=== PATIENT | female | born 1980 | race Caucasian/White ===

== ENCOUNTER 2017-03-19 20:12 | Emergency (ER) | payer BC ==
[2017-03-19 20:42] VITALS: BP 118/63
--- NOTE | 2017-03-19 21:12 | UC ---
Skin Complaint HPI - HPI Summary HPI Summary: pt c/o of 2 cm in diameter bruised circular area with erythematous area around bruise on medial left lower ankle. pt c/o of burning and tenderness to area Pt denies injury. pt has history of ankle fracture varicose vein stripping to left lower extrmity. pt reports traveling over the weekend, sitting and ambulating for long periods of time over last 2 days. - History of Current Complaint Chief Complaint: UCSkin Time Seen by Provider: 03/19/17 20:42 Stated Complaint: SKIN COMPLAINT,LEFT LEG Hx Obtained From: Patient Hx Last Menstrual Period: 03/06/17 ?: No Onset/Duration: Sudden Onset, Lasting Hours Skin Exposure Onset/Duration: Hours Ago Timing: Constant Onset Severity: Moderate Location: Discrete - left medial lower /shinankle Character: Swelling, Redness Aggravating: Touch Alleviating: Other - elevation Associated Signs & Symptoms: Positive: Tenderness - Allergy/Home Medications Allergies/Adverse Reactions: Allergies Allergy/AdvReac Type Severity Reaction Status Date / Time No Known Allergies Allergy Verified 03/19/17 20:31 Home Medications: Home Medications Ibuprofen TAB* [Motrin TAB* 600 MG] 600 mg PO Q6H PRN 03/19/17 [History Confirmed 03/19/17] Review of Systems Constitutional: Negative Skin: Bruising - left lower Eyes: Negative ENT: Negative Respiratory: Negative Cardiovascular: Negative Gastrointestinal: Negative Genitourinary: Negative Motor: Negative Neurovascular: Negative Musculoskeletal: Edema - left lower extremity Neurological: Negative Psychological: Negative All Other Systems Reviewed And Are Negative: Yes PMH/Surg Hx/FS Hx/Imm Hx Previously Healthy: Yes - varicose veins, left ankle fracture - Surgical History Surgical History: Yes Surgery Procedure, Year, and Place: c section x 2, varicose veins surgery both legs - Family History Known Family History: Positive: Blood Disorder - denies - Social History Occupation: Employed Full-time Lives: With Family Alcohol Use: None Substance Use Type: None Smoking Status (MU): Never Smoked Tobacco Physical Exam Triage Information Reviewed: Yes Appearance: Well-Appearing Vital Signs: Initial Vital Signs Temp 99.7 F 03/19/17 20:32 Pulse 77 03/19/17 20:32 Resp 16 03/19/17 20:32 BP 118/63 03/19/17 20:32 Pulse Ox 100 03/19/17 20:32 Eye Exam: Normal Neck exam: Normal Respiratory Exam: Normal Cardiovascular Exam: Normal Musculoskeletal Exam: Other Musculoskeletal: Positive: Edema @ - left lower extremity,non pitting edema, 2 cm diameter bruise with erythematous [place] around bruise, tenderness with palpation, Neurological Exam: Normal Psychological Exam: Normal Skin Exam: Other - bruise, Course/Dx - Differential Diagnoses - Skin Complaint Differential Diagnoses: Contact Dermatitis, Tinea, Other - shingles - Diagnoses Provider Diagnoses: bruise,. abrasion. chronic lower left leg edema Discharge - Discharge Plan Condition: Stable Disposition: HOME Patient Education Materials: Contusion in Adults (ED), Leg Edema (ED), Abrasion (ED) Referrals: Kay Bowers MD [Primary Care Provider] - Geraldo Tan MD [Medical Doctor] -
== END 2017-03-19 21:19 | disposition home or self-care (01) ==
LOC: UCCORT 20:12
DX: S80.12XA Contusion of left lower leg, initial encounter (principal); S80.812A Abrasion, left lower leg, initial encounter; X58.XXXA Exposure to other specified factors, initial encounter; Y93.9 Activity, unspecified; Y92.9 Unspecified place or not applicable; R60.0 Localized edema; I83.90 Asymptomatic varicose veins of unspecified lower extremity
CPT/HCPCS: 99211; G0463

== ENCOUNTER 2017-05-02 14:49 | Emergency (ER) | payer BC ==
[2017-05-02 15:10] VITALS: BP 142/74
--- NOTE | 2017-05-02 15:27 | UC ---
Complaint Female HPI - HPI Summary HPI Summary: Patient has had dysuria, increase frequency of urination for the past 2 days. - History Of Current Complaint Chief Complaint: UCGU Stated Complaint: URINARY COMPLAINT Time Seen by Provider: 05/02/17 14:53 Hx Obtained From: Patient Hx Last Menstrual Period: now ?: No Onset/Duration: Sudden Onset, Lasting Days Timing: Constant Severity Initially: Mild Severity Currently: Moderate Character: Burning, Cramping Aggravating Factor(s): Urination Alleviating Factor(s): Position - Allergies/Home Medications Allergies/Adverse Reactions: Allergies Allergy/AdvReac Type Severity Reaction Status Date / Time pollen Allergy Sneezing Uncoded 05/02/17 15:11 Home Medications: Home Medications Avelzjs-Bimtxweymwjvp-Cvqhesuu [Excedrin Migraine] 1 tab PO ONCE PRN 05/02/17 [ History Confirmed 05/02/17] PMH/Surg Hx/FS Hx/Imm Hx Previously Healthy: Yes - Surgical History Surgical History: Yes Surgery Procedure, Year, and Place: c section x 2, varicose veins surgery both legs - Family History Known Family History: Positive: Blood Disorder - denies - Social History Alcohol Use: None Substance Use Type: None Smoking Status (MU): Never Smoked Tobacco Review of Systems Constitutional: Negative Skin: Negative Eyes: Negative ENT: Negative Respiratory: Negative Cardiovascular: Negative Gastrointestinal: Negative Genitourinary: Dysuria, Frequency, Urgency Motor: Negative Neurovascular: Negative Musculoskeletal: Negative Neurological: Negative Psychological: Negative All Other Systems Reviewed And Are Negative: Yes Physical Exam Triage Information Reviewed: Yes Appearance: Well-Nourished, Ill-Appearing, Pain Distress Vital Signs: Initial Vital Signs Temp 99.2 F 05/02/17 14:56 Pulse 83 05/02/17 14:56 Resp 12 05/02/17 14:56 BP 142/74 05/02/17 14:56 Vital Signs Reviewed: Yes Eye Exam: Normal Eyes: Positive: Conjunctiva Clear ENT: Positive: Normal ENT inspection, Hearing grossly normal, Pharynx normal, TMs normal Dental Exam: Normal Neck exam: Normal Neck: Positive: Supple, Nontender, No Lymphadenopathy Respiratory Exam: Normal Respiratory: Positive: Chest non-tender, Lungs clear, Normal breath sounds Cardiovascular Exam: Normal Cardiovascular: Positive: RRR, No Murmur, Pulses Normal Abdominal Exam: Normal Abdomen Description: Positive: Nontender, No Organomegaly, Soft Bowel Sounds: Positive: Present Musculoskeletal Exam: Normal Musculoskeletal: Positive: Strength Intact, ROM Intact, No Edema Neurological Exam: Normal Neurological: Positive: Alert, Muscle Tone Normal Psychological Exam: Normal Skin Exam: Normal Complaint Female Dx - Course Course Of Treatment: hx obtained, exam performed ,meds reviewed, UA pos for blood, urine culture sent, treated for UTI - Differential Dx/Diagnosis Differential Diagnosis/HQI/PQRI: Sexually Transmitted Disease, Ureteral Stone, Urinary Tract Infection, Other - vaginitis Provider Diagnoses: dysuria. hematuria Discharge - Discharge Plan Condition: Stable Disposition: HOME Patient Education Materials: Dysuria (ED) Additional Instructions: 1. Take the pyridium, 2. increase your fluid intake 3. Start the antibiotics today or tomorrow as you desire, if your symtpoms disappear with the increased fluid intake, hold off on the antibiotic until the culture comes back, if symptoms increase start the antibiotic. 4. follow up as needed.
== END 2017-05-02 15:35 | disposition home or self-care (01) ==
LOC: UCCORT 14:49
DX: N39.0 Urinary tract infection, site not specified (principal)
CPT/HCPCS: 81003; 87086; 99212; G0463

== ENCOUNTER 2017-09-22 09:51 | Emergency (ER) | payer BC, OTHER ==
[2017-09-22 10:10] VITALS: BP 133/58
--- NOTE | 2017-09-22 10:48 | RAD ---
HISTORY: Right knee pain COMPARISONS: None VIEWS: 4, Frontal, lateral, and oblique views of the right knee FINDINGS: BONE DENSITY: Normal. BONES: There is no displaced fracture. There is a superior patellar enthesophyte. JOINTS: There is minimal osteophytic spurring of the medial and lateral patella. There is no suprapatellar joint effusion or lipohemarthrosis. ALIGNMENT: There is no dislocation. SOFT TISSUES: Unremarkable. OTHER FINDINGS: None. IMPRESSION: MINIMAL PATELLOFEMORAL OSTEOARTHRITIS. NO ACUTE OSSEOUS INJURY. IF SYMPTOMS PERSIST, RECOMMEND REPEAT IMAGING
--- NOTE | 2017-09-22 10:54 | UC ---
Lower Extremity/Ankle HPI - HPI Summary HPI Summary: 37 year old with knee pain right. fell about 3 weeks ago off couch and injured knee. still with pain and worsened in the past week. pain in the front of the knee and worse with bending over and putting pressure on knee. feels instability. no falling since then. feels the leg will give out. - History of Current Complaint Chief Complaint: UCLowerExtremity Stated Complaint: RIGHT KNEE INJURY Time Seen by Provider: 09/22/17 10:28 Hx Obtained From: Patient Hx Last Menstrual Period: 09/19/17 ?: No Onset/Duration: Sudden Onset Severity Initially: Moderate Severity Currently: Mild Aggravating Factor(s): Standing, Ambulation Alleviating Factor(s): Rest, Elevation Able to Bear Weight: Yes - Allergies/Home Medications Allergies/Adverse Reactions: Allergies Allergy/AdvReac Type Severity Reaction Status Date / Time pollen Allergy Sneezing Uncoded 09/22/17 10:10 Home Medications: Home Medications Acetaminophen [Acetaminophen Extra Stren] 1,000 mg PO DAILY PRN 09/22/17 [ History Confirmed 09/22/17] PMH/Surg Hx/FS Hx/Imm Hx Previously Healthy: Yes - Surgical History Surgical History: Yes Surgery Procedure, Year, and Place: c section x 2, varicose veins surgery both legs - Family History Known Family History: Positive: Blood Disorder - denies - Social History Lives: With Family Alcohol Use: None Substance Use Type: None Smoking Status (MU): Never Smoked Tobacco Review of Systems Musculoskeletal: Arthralgia, Decreased ROM All Other Systems Reviewed And Are Negative: Yes Physical Exam Triage Information Reviewed: Yes Appearance: Well-Appearing, Pain Distress - mild Vital Signs: Initial Vital Signs Temp 98.1 F 09/22/17 10:02 Pulse 86 09/22/17 10:02 Resp 18 09/22/17 10:02 BP 133/58 09/22/17 10:02 Vital Signs Reviewed: Yes Respiratory Exam: Normal Cardiovascular Exam: Normal Musculoskeletal: Positive: Strength Intact, ROM Intact, No Edema, Other: - patellar pain to palpation and worsened with squatting. no homans. no skin changes. no effusion or erythema. Neurological Exam: Normal Psychological Exam: Normal Skin Exam: Normal Diagnostics - Laboratory Diagnostic Studies Completed/Ordered: IMPRESSION: MINIMAL PATELLOFEMORAL OSTEOARTHRITIS. NO ACUTE OSSEOUS INJURY. IF SYMPTOMS PERSIST,. 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
== END 2017-09-22 11:13 | disposition home or self-care (01) ==
LOC: UCCORT 09:51
DX: M22.2X1 Patellofemoral disorders, right knee (principal); M17.11 Unilateral primary osteoarthritis, right knee
CPT/HCPCS: 99211; G0463

== ENCOUNTER 2019-09-02 12:40 | Emergency (ER) | payer OTHER ==
[2019-09-02 13:01] VITALS: BP 138/73
--- NOTE | 2019-09-02 14:01 | UC ---
Palpitation/Dysrhythmia HP - HPI Summary HPI Summary: PATIENT HAS HAD INTERMITTENT EPISODES OF PALPITATIONS WITH DIZZINESS AND LIGHTHEADEDNESS FOR THE PAST YEAR OR SO. OVER THE PAST FEW MONTHS EPISODES HAVE BECOME MORE FREQUENT. CAME IN TODAY DUE TO AN EPISODE THAT OCCURRED WHILE SHE WAS AT [employer]. THIS EPISODE WAS WORSE THAN NORMAL. SHE HAD ASSOCIATED DIZZINESS/LIGHTHEADEDNESS AND WEAKNESS. FELT HER WHOLE BODY GET FLUSHED AND WARM. ADMITS TO FEELING ANXIOUS AT TIMES. SHE DENIES ANY CAFFEINE INTAKE. GETS 8-9 HOURS OF SLEEP PER NIGHT AND HYDRATES WELL. ADMITS TO FEELING ANXIOUS AT TIMES THAT SHE HAS A LOT GOING ON. 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 - History of Current Complaint Chief Complaint: UCCardiac Stated Complaint: CHEST COMPLAINT Time Seen by Provider: 09/02/19 13:06 Hx Obtained From: Patient, Family/Assembly Operator - Hx Last Menstrual Period: 09/19/17 Timing: Intermittent Episodes Lasting: - SECONDS TO MINUTES Severity Initially: Moderate Severity Currently: Moderate Pain Intensity: 0 Pain Scale Used: 0-10 Numeric Character: Fast Aggravating Factor(s): Nothing Alleviating Factor(s): Rest Associated Signs & Symptoms: Positive: Lightheadedness, Dizzy. Negative: Chest Pain, Shortness of Breath, Diaphoresis, Nausea - Allergy/Home Medications Allergies/Adverse Reactions: Allergies Allergy/AdvReac Type Severity Reaction Status Date / Time pollen Allergy Sneezing Uncoded 09/02/19 13:02 PMH/Surg Hx/FS Hx/Imm Hx - Additional Past Medical History Additional PMH: VARICOSE VEINS - Surgical History Surgical History: Yes Surgery Procedure, Year, and Place: c section x 2, varicose veins surgery both legs - Family History Known Family History: Positive: Blood Disorder - denies - Social History Alcohol Use: None Substance Use Type: None Smoking Status (MU): Never Smoked Tobacco Review of Systems All Other Systems Reviewed And Are Negative: Yes Constitutional: Positive: Fatigue ENT: Positive: Negative Respiratory: Positive: Negative Cardiovascular: Positive: Palpitations Gastrointestinal: Positive: Nausea Neurological: Positive: Other - DIZZINESS Psychological: Positive: Anxious Physical Exam Triage Information Reviewed: Yes Appearance: No Pain Distress, Well-Nourished, Ill-Appearing - APPEARS FATIGUED, ANXIOUS Vital Signs: Initial Vital Signs Temp 100.2 F 09/02/19 12:44 Pulse 98 09/02/19 12:44 Resp 17 09/02/19 12:44 BP 138/73 09/02/19 12:44 Pulse Ox 100 09/02/19 12:44 Vital Signs Reviewed: Yes Eyes: Positive: Conjunctiva Clear ENT: Positive: Hearing grossly normal Neck: Positive: Supple Respiratory Exam: Normal Cardiovascular Exam: Normal Abdomen Description: Positive: Nontender, Soft. Negative: Distended, Guarding Musculoskeletal: Positive: No Edema Neurological: Positive: Alert Psychological: Positive: Age Appropriate Behavior Skin: Negative: Rashes Diagnostics - EKG Cardiac Rate: NL - 87BPM Cardiac Rhythm: Sinus: Normal Ectopy: None ST Segment: Non-Specific Palpitations Course/Dx - Course Course Of Treatment: PATIENT PRESENTS WITH INCREASING FREQUENCY OF PALPITATIONS OVER THE PAST FEW MONTHS. SHE HAS ASSOCIATED DIZZINESS/LIGHTHEADEDNESS WITH EACH EPISODE. EPISODES LAST ANYWHERE FROM A FEW SECONDS TO A FEW MINUTES. CAME IN TODAY DUE TO AN EPISODE THAT OCCURRED WHILE AT [employer]. SHE FELT EXTREMELY WEAK, DIZZY, LIGHTHEADED. FELT HER WHOLE BODY GET FLUSHED. SHE CONTINUES TO FEEL "OFF ". SHE MAY HAVE SOME UNDERLYING DEPRESSION/ANXIETY HOWEVER I FEEL HER PRESENTATION WARRANTS FURTHER EVALUATION IN THE EMERGENCY ROOM. PT OFFERED TRANSPORT TO THE ER BY AMBULANCE BUT DECLINES. ADVISED THAT BY NOT TRAVELING IN A MONITORED SETTING SHE COULD BE RISKING WORSENING OF HER CONDITION THAT COULD POSE A THREAT TO HER LIFE, HEALTH AND MEDICAL SAFETY. SHE VERBALIZES UNDERSTANDING AND CONTINUES TO DECLINE AMBULANCE TRANSFER. - Differential Dx/Diagnosis Provider Diagnosis: Palpitations Discharge ED - Sign-Out/Discharge Documenting (check all that apply): Patient Departure All imaging exams completed and their final reports reviewed: No Studies - Discharge Plan Condition: Stable Disposition: TRANS HIGHER L OF CARE FAC Patient Education Materials: Heart Palpitations (ED) Referrals: Anel Thompson MD [Medical Doctor] - Additional Instructions: I'M CONCERNED ABOUT YOUR CONSTELLATION OF SYMPTOMS THAT INCLUDES PALPITATIONS, DIZZINESS AND WEAKNESS. YOU REQUIRE A HIGHER LEVEL OF SERVICE THAN WHAT IS AVAILABLE IN THE URGENT CARE. GO DIRECTLY [place] [facility] [place] FOR FURTHER EVALUATION. YOU HAVE DECLINED TRANSFER TO THE ER BY AMBULANCE. BE ADVISED THAT BY NOT TRAVELING IN A MONITORED SETTING YOU COULD BE RISKING WORSENING OF YOUR CONDITION THAT COULD POSE A THREAT TO YOUR LIFE, HEALTH AND MEDICAL SAFETY. - Billing Disposition and Condition Condition: STABLE Disposition: Trans Higher Lvl of Care Fac
== END 2019-09-02 13:51 | disposition short-term general hospital (02) ==
LOC: UCEAST 12:40
DX: R00.2 Palpitations (principal); R42 Dizziness and giddiness; R11.0 Nausea; R53.83 Other fatigue; Z91.09 Other allergy status, other than to drugs and biological substances
CPT/HCPCS: 99212; G0463

== ENCOUNTER 2019-09-02 14:11 | Emergency (ER) | payer OTHER ==
--- NOTE | 2019-09-02 14:29 | ED ---
Palpitations / Dysrhythmia - HPI Summary HPI Summary: 39-year-old female with significant past medical history of menorrhagia which was corrected with IUD placement presents to the emergency department today with chief complaint of palpitations. She states she was in [employer] this morning at 10:30 and experienced an episode of a strange feeling in her chest as well as lightheadedness and a strange sensation through her arms which lasted minutes. She states when the episode occurred she was sitting down and was not doing anything in particular. She denies any pain with this or associated symptoms such as shortness of breath, diaphoresis, abdominal pain , headache, jaw pain, arm pain. She states she has been having similar episodes over the last year for which she has been evaluated for with no explanation as to why she dispenses her symptoms. She believes this could be due to anxiety. She takes a daily multivitamin and no other medications daily. She currently endorses no complaints while in the emergency department. She endorses a significant family history of diabetes, thyroid disorders, heart disease. She denies recent surgery, travel, immobilization. She denies any recent recreational drug use, alcohol use, tobacco use. She denies fever, chest pain, abdominal pain, shortness of breath, joint pain, rash. - History of Current Complaint Chief Complaint: EDDysrhythmPalp Time Seen by Provider: 09/02/19 14:29 Hx Obtained From: Patient, Family/Multimedia Specialist - Family at bedside Onset/Duration: Sudden Onset - Began at 10:30 this morning and lasted minutes, Lasting Minutes, Other - She has been extrinsics more episodes over the last year Timing: Intermittent Episodes Lasting: - Minutes Severity Initially: Severe Severity Currently: None Character: Irregular Aggravating: Other - Unknown Alleviating: Rest - Sitting down after an episode, Position Associated Signs & Symptoms: Lightheadedness Related History: Similar Episode/Dx as - 1 year - Risk Factors Cardiac: Family History - Allergy/Home Medications Allergies/Adverse Reactions: Allergies Allergy/AdvReac Type Severity Reaction Status Date / Time pollen Allergy Sneezing Uncoded 09/02/19 14:15 PMH/Surg Hx/FS Hx/Imm Hx Endocrine/Hematology History: Denies: Hx Diabetes, Hx Thyroid Disease Cardiovascular History: Denies: Hx Hypertension Respiratory History: Denies: Hx Asthma, Hx Chronic Obstructive Pulmonary Disease (COPD) GI History: Denies: Hx Ulcer - Surgical History Surgery Procedure, Year, and Place: c section x 2, varicose veins surgery both legs Infectious Disease History: No Infectious Disease History: Denies: Hx Hepatitis, Hx Human Immunodeficiency Virus (HIV), History Other Infectious Disease, Traveled Outside the [place] in Last 30 Days - Family History Known Family History: Positive: Blood Disorder - denies - Social History Alcohol Use: None Substance Use Type: Reports: None Smoking Status (MU): Never Smoked Tobacco Review of Systems Constitutional: Negative Eyes: Negative Cardiovascular: Negative Respiratory: Negative Gastrointestinal: Negative Genitourinary: Negative Musculoskeletal: Negative Negative: Rash Negative: Headache, Weakness, Syncope Positive: Anxious All Other Systems Reviewed And Are Negative: Yes Physical Exam Triage Information Reviewed: Yes Vital Signs On Initial Exam: Initial Vitals Temp Pulse Resp BP Pulse Ox 97.8 F 107 19 142/76 100 09/02/19 14:12 09/02/19 14:12 09/02/19 14:12 09/02/19 14:12 09/02/19 14:12 Vital Signs Reviewed: Yes Appearance: Positive: Well-Appearing, No Pain Distress, Well-Nourished, Obese Skin: Positive: Warm, Skin Color Reflects Adequate Perfusion Head/Face: Positive: Normal Head/Face Inspection Eyes: Positive: EOMI, OSKAR ENT: Positive: Hearing grossly normal Neck: Positive: Nontender, Other: - No appreciable thyromegaly is noted.. Negative: No Lymphadenopathy Respiratory/Lung Sounds: Positive: Clear to Auscultation, Breath Sounds Present Cardiovascular: Positive: RRR, S1, S2. Negative: Murmur Abdomen Description: Positive: Nontender, Soft. Negative: Distended, Guarding Bowel Sounds: Positive: Present Neurological: Positive: Sensory/Motor Intact, Alert, Oriented to Person Place, Time, Facial Symmetry, Speech Normal Psychiatric: Positive: Normal AVPU Assessment: Alert Procedures - Sedation Patient Received Moderate/Deep Sedation with Procedure: No Diagnostics - Vital Signs Vital Signs Temp Pulse Resp BP Pulse Ox 09/02/19 14:12 97.8 F 107 19 142/76 100 - Laboratory Result Diagrams: 09/02/19 14:45 09/02/19 14:45 Lab Statement: Any lab studies that have been ordered have been reviewed, and results considered in the medical decision making process. Course/Dx - Course Course Of Treatment: Patient was evaluated in the emergency department today for palpitations. She was seen and examined. Laboratory results as well as an EKG are ordered and showed. EKG was returned showing normal sinus rhythm at a rate of [address]pm[address] evidence of ST elevation. Normal [place] and QTc interval. No evidence of Brugada or WPW. There are nonspecific T-wave abnormalities in leads 3 and aVF. There are no prior EKGs for comparison however this EKG isn't concerning for acute myocardial infarction or other acute pathology. Due to her tachycardia she was given 1 L of lactated Ringer's. Pulmonary embolism was considered but her PERC/ Wells score were considered low risk, and further evaluation for this was not warrented. Laboratories returned showing no evidence of anemia,electrolyte abnormalities, or thyroid disorder. Initial troponin was 0.00. HEART Score: 2. A drug tox screen was waved due to the patient being adamant that she has not used any recreational drugs or alcohol. Laboratory studies and EKG revealed no acute abnormalities suggestive of her symptoms. Due to the patient being low risk for any acute pathology at this time she is to follow-up with her primary care provider for further management and evaluation of her symptoms. She was informed to return to the emergency department if she develops any new or worsening symptoms. The patient agrees with this plan. - Diagnoses Differential Diagnosis/HQI/PQRI: Positive: AV Block, Hypokalemia, Panic Disorder , Paroxymal SVT, Pulmonary Embolism, Other - MARTINES, orthostatic hypotension Provider Diagnoses: Palpitations Discharge ED - Sign-Out/Discharge Documenting (check all that apply): Patient Departure - Discharge Plan Condition: Stable Disposition: HOME Patient Education Materials: Heart Palpitations (ED) Referrals: Joon Craig NP [Primary Care Provider] - 2 Days Additional Instructions: You were seen in the emergency department today due to palpitations you experienced this afternoon. An EKG was done as well as blood work which revealed no abnormalities which would suggest an acute medical problem requiring intervention at this time. Please follow-up with your primary care provider in the next 2-3 days for further evaluation and management. If you develop any new or worsening symptoms please return to the emergency Department immediately. - Billing Disposition and Condition Condition: STABLE Disposition: Home
[2019-09-02 14:52] LABS: ABS Monocytes 0.3 10^3/ul (0-0.8); ABS Neutrophils 8.3 10^3/ul (1.5-7.7); Eosinophil % 0.3 %; Hematocrit 46 % (35-47); Hemoglobin 15.5 g/dL (12.0-16.0); Lymphocyte % 10.1 %; Mean Corpuscular HGB Conc 34 g/dL (31-36); Mean Corpuscular Hemoglobin 29 pg (27-31); Mean Corpuscular Volume 86 fL (80-97); Mean Platelet Volume 6.7 fL (7.4-10.4); Platelet Count 309 10^3/uL (150-450); Red Blood Count 5.32 10^6 /uL (3.70-4.87); Red Cell Distribution Width 13 % (10-15); White Blood Count 9.6 10^3/uL (3.5-10.8)
[2019-09-02] MEDS ORDERED: Lactated Ringers 1000 ML Bag* 1,000 ML IV SCH (15:00)
[2019-09-02 15:08] LABS: Albumin 4.8 g/dL (3.2-5.2); Albumin/Globulin Ratio 1.5 (1-3); BUN/Creatinine Ratio 12.9 (8-20); Calcium 9.9 mg/dL (8.6-10.3); EGFR Non-African American 106.6 (>60); Globulin 3.2 g/dL (2-4); Potassium 3.5 mmol/L (3.5-5.0); Total Bilirubin 0.5 mg/dL (0.2-1.0)
[2019-09-02 16:10] LABS: TSH (Thyroid Stimulating Horm) 0.96 mcIU/mL (0.34-5.60)
[2019-09-02 16:38] VITALS: BP 120/78
== END 2019-09-02 16:44 | disposition home or self-care (01) ==
LOC: ED 14:11
DX: R00.2 Palpitations (principal); R42 Dizziness and giddiness; Z97.5 Presence of (intrauterine) contraceptive device
CPT/HCPCS: 36415; 80053; 83605; 83735; 84443; 84484; 85025; 93005; 96360; 99282